=== PATIENT | female | born 1985 | race Caucasian/White ===

== ENCOUNTER 2024-01-26 04:15 | Day surgery (SDC) | payer OTHER ==
[2024-01-20 13:47] VITALS: BMI 35.7
[2024-01-26] MEDS ORDERED: ACETAMINOPHEN INJECTION 100 ML IVPB ONE (07:50)
[2024-01-26] MEDS ORDERED: oxyCODONE HCL 5 MG TABLET PO PRN ×2 (08:35→08:44)
[2024-01-26] MEDS ORDERED: IBUPROFEN 800 MG/8 ML IJ IVPB PRN (08:44)
[2024-01-26] MEDS ORDERED: IBUPROFEN 600 MG TABLET (FP) PO PRN (08:44)
[2024-01-26] MEDS ORDERED: ONDANSETRON 4 MG/2 ML VIAL IVPUSH PRN (08:44)
[2024-01-26] MEDS ORDERED: ELECTROLYTE-148 SOLN 1,000 ML IV SCH (08:45)
[2024-01-26] MEDS ORDERED: LACTATED RINGERS SOLUTION 1,000 ML IV SCH (08:45)
[2024-01-26] MEDS ORDERED: PROPOFOL 20 ML ONE (08:50)
[2024-01-26] MEDS ORDERED: MIDAZOLAM HCL 2 MG/2 ML SINGLE DOSE VIAL ONE (08:50)
[2024-01-26] MEDS ORDERED: KETOROLAC TROMETHAMINE 30 MG/1 ML VIAL ONE (08:50)
[2024-01-26] MEDS ORDERED: DEXAMETHASONE SOD PHOSPHATE 4 MG/1 ML VIAL ONE (08:50)
[2024-01-26] MEDS ORDERED: FENTANYL CITRATE/PF 50 MCG/ML VIAL ONE (08:50)
[2024-01-26] MEDS ORDERED: ONDANSETRON 4 MG/2 ML VIAL ONE (09:55)
[2024-01-26] MEDS: ONDANSETRON 4 MG/2 ML VIAL IVPUSH PRN (09:57)
[2024-01-26 12:30] VITALS: RESP 16
[2024-01-26 12:33] VITALS: BP 123/65; PULSE 83; TEMP 97.3
== END 2024-01-26 12:00 | disposition home or self-care (01) ==
LOC: JASU-SURG 04:15
PROVIDERS: ATTEND Obstetrics & Gynecology
PROC: 0UDB8ZZ Extraction of Endometrium, Via Natural or Artificial Opening Endoscopic (ICD-10-PCS; principal; 2024-01-26 08:30)
DX: N84.0 Polyp of corpus uteri (principal); N93.9 Abnormal uterine and vaginal bleeding, unspecified; R93.89 Abnormal findings on diagnostic imaging of other specified body structures
CPT/HCPCS: 81025; 88305-TC; 94760; J0131